=== PATIENT | female | born 1995 | race Caucasian/White ===

== ENCOUNTER 2025-10-03 20:38 | Emergency (ER) | payer OTHER, SELFPAY ==
--- NOTE | ~2025-10-03 | XR_ITS ---
EXAMINATION: XR toe 2nd LT min 2V, XR foot LT 2V DATE: 10/03/2025 21:21 INDICATION: Trauma second toe. TECHNIQUE: 3 views left foot, 3 views of the forefoot and toes. COMPARISON: None. FINDINGS: Dislocation of the proximal interphalangeal joint of second toe is noted. Soft tissue swelling of the second toe is noted. No other fractures or dislocations are seen in the left foot. IMPRESSION: 1. Traumatic dislocation of the proximal interphalangeal joint of the second toe. Reviewed, dictated and finalized at location T. EE MACHINE TECHNICIAN IMPRESSION: 1. Traumatic dislocation of the proximal interphalangeal joint of the second to e.
[2025-10-03 20:40] VITALS: BP 148/90; PULSE 75; RESP 18; TEMP 36.6; O2SAT 100
--- NOTE | 2025-10-03 22:16 | ED.LOWEXIN ---
HPI - Extremity Injury (Lower) General Chief Complaint: Extremity Injury, Lower Stated Complaint: toe injury Time Seen by Provider: 10/03/25 21:48 Source: patient Mode of arrival: ambulatory Limitations: no limitations History of Present Illness HPI Narrative: This is a 30-year-old female with no significant past medical history who presents to the ED for left 2nd toe injury. Patient states that she tripped 5-6 steps injured her left 2nd toe. She has pain to that area and she was able to see the bone prompting her to come to the ED. last tetanus shot was last year. Related Data Allergies Allergy/AdvReac Type Severity Reaction Status Date / Time No Known Allergies Allergy Verified 10/03/25 22:38 Review of Systems Review of Systems: Gen.: Denies fevers or chills Eyes: Denies eye pain or visual change ENT: Denies congestion Respiratory: Denies shortness of breath or cough CV: Denies chest pain or palpitations GI: Denies abdominal pain nausea, emesis or diarrhea denies burning, urgency, frequency or hematuria Musculoskeletal: As per HPI Neuro: Denies numbness, tingling, weakness or focal weakness Skin: Denies rash Except as documented, all other systems reviewed and negative Exam Narrative: APPEARANCE: No acute distress, nontoxic, resting in bed HEENT: Normocephalic, atraumatic, OMM RESPIRATORY: No respiratory distress CARDIOVASCULAR: Appears well perfused ABDOMINAL: Nondistended MUSCULOSKELETAl: Moves all extremities. Deformity to the left 2nd toe with exposed distal surface of the proximal phalanx no active bleeding at this time NEURO: Awake and alert. SKIN:: Warm, dry. No rashes lesions or abrasions PSYCHIATRIC: Normal affect/mood, Course Vital Signs Vital signs: Vital Signs Temperature 97.8 F 10/03/25 20:40 Pulse Rate 75 10/03/25 20:40 Respiratory Rate 18 10/03/25 20:40 Blood Pressure 148/90 H 10/03/25 20:40 Pulse Oximetry 100 10/03/25 20:40 Oxygen Delivery Room Air 10/03/25 20:40 Temperature 97.8 F 10/03/25 20:40 Pulse Rate 74 10/04/25 00:11 Respiratory Rate 16 10/04/25 00:11 Blood Pressure 120/81 10/04/25 00:11 Pulse Oximetry 100 10/04/25 00:11 Oxygen Delivery Room Air 10/03/25 20:40 Procedures Orthopedic Joint Reduction Joint #1: Orthopedic Joint Reduction Date: 10/03/25 Orthopedic Joint Reduction Time: 23:15 Side: left Joint Reduction Location: toe Analgesia: nerve block Pre-Procedure Neuro Vascular Exam: normal Local Anesthesia: lidocaine 2% Amount of anesthesic used (mL): 6 Technique used: direct manipulation Post-reduction neuro exam: intact Post-reduction vascular: intact Post Reduction X-Ray Obtained: No Splint Applied: Yes Patient Tolerated Procedure: well MDM - Extremity Injury (Lower) MDM Narrative Medical decision making narrative: 30-year-old female Presenting for left 2nd toe injury. On initial evaluation patient was in no acute distress afebrile, hemodynamic stable. Differentials include but are not limited to: Fracture, sprain, strain, contusion, dislocation Notable exam findings: Laceration over the dorsum of the left 2nd toe with exposed distal aspect of the proximal phalanx I personally reviewed the patient's images and interpret as follows: X-ray toe: Dislocation at the PIP of the 2nd toe Discussed case with And Regarding the open dislocation, recommended aggressively washing out the joint with saline and reducing and is able and leaving it open from that point did not recommend sutures to repair the laceration. Did recommend starting antibiotics for anti pseudomonal coverage. Joint was reduced, refer to procedure note above. Patient tolerated procedure well. She was milvia taped and placed in a postop shoe. She was given a referral to Dr. Han, orthopedic surgery, for further evaluation and management. She was given a prescription for ciprofloxacin. Patient was agreeable to this plan. Given strict return precautions. Medical Records Attestation: I reviewed the patient's medical records. Imaging Data Radiologist's impression: Impressions Foot X-Ray 10/03/25 21:22 IMPRESSION: 1. Traumatic dislocation of the proximal interphalangeal joint of the second toe. Toe X-Ray 10/03/25 21:22 IMPRESSION: 1. Traumatic dislocation of the proximal interphalangeal joint of the second toe. Discharge Plan Discharge Clinical Impression: Open dislocation of toe joint Qualifiers: Encounter type: initial encounter Qualified Code(s): S93.119A - Dislocation of interphalangeal joint of unspecified toe(s), initial encounter Patient Disposition: Home Condition: Stable Instructions: Antibiotic Form Additional Instructions: You had a dislocated toe they were able to reduce. Because this was an open dislocation, you will be started on antibiotics. You were given a referral to Dr. Han, orthopedic surgery, follow up with his office in the next few days for reevaluation. Take ciprofloxacin as prescribed. Return to the ED for new or worsening symptoms. For pain, discomfort or temperature greater than or equal to 100.8 ?F please alternate the following 2 medications as needed. First medication- acetaminophen/Tylenol- 1000mg every 6-8 hours as needed for above indications. Second medication- ibuprofen/Motrin-600mg every 6-8 hours as needed for above indication. Patient Language: Pakistani Prescriptions: New ciprofloxacin HCl 750 mg tablet 750 mg PO Q12H Qty: 14 0RF Follow-up/Referrals: Martin Han MD [Physician, Orthopedics] UNKNOWN,DOCTOR [Non-Staff]
[2025-10-03] MEDS: CEFEPIME 1 GM in SODIUM CHLORIDE 0.9% IV 50 ML 100 ML IVPB (22:39)
[2025-10-03] MEDS: HYDROcodone/acetaminophen (*CRX) 5-325 MG TABLET 1 TAB PO (23:47)
[2025-10-03 23:56] VITALS: BP 120/81; PULSE 74; RESP 16; O2SAT 100
[2025-10-04 00:11] VITALS: BP 120/81; PULSE 74; RESP 16; O2SAT 100
--- OUTSIDE RECORDS SUMMARY | 2025-10-04 01:56 | XMS_ITS | Encounter Summary ---
Author Organization [facility] Healthcare Address [address] [place] [address] Care Team Providers Care Payroll Human Resources Assistant Name Role Phone Jane Bonilla MD Primary Care Provider [phone] Tirce Mckenzie SECURITY EXPERT Unavailable [phone] Encounter Details Date Type Department Care Team (Latest Contact Info) Description 09/18/2025 Results Follow-Up [facility] Medical Group Obstetrical Gynecology [address] [id number] Dot Majano MD [address] [address] Pap with reflex to High Risk HPV and Genotyping (Cytology Component) Social History Tobacco Use Types Packs/Day Years Used Date Smoking Tobacco: Never Smokeless Tobacco: Never Alcohol Use Standard Drinks/Week Comments No 0 (1 standard drink = 0.6 oz pur e alcohol) Social Connection and Isolation Panel Answer Date Recorded In a typical week, how many times do you talk on the phone with family, friends, or neighbors? More than three times a week 01/14/2025 How often do you get togethe r with friends or relatives? More than three times a week 01/14/2025 Attends Synagogue Services Not on file 01/14 Do you belong to any clubs o r organizations such as spiritism groups, unions, fraternal or athletic groups, or school groups? Patient declined 01/14/2025 How often do you attend meet ings of the clubs or organizations you belong to? Patient declined 01/14/2025 Are you , , di vorced, , never , or living with a partner? Patient declined 01/14/2025 AUDIT-C Answer Date Recorded Q1: How often do you have a drink containing alc ohol? Never 01/14/2025 Average Number of Drinks Not on file Frequency of Binge Drinking Not on file 12/2024 Overall Financial Resource Strain (CARDIA) Answe r Date Recorded How hard is it for you to pa y for the very basics like food, housing, medical care, and heating? Not hard at all 01/14/2025 PHQ-2 Answer Date Recorded PHQ-2 Total Score (If total score is 3 or more points, staff should administer the PHQ-9) 0 09/06/2025 [facility] - Occupational Stress Questionnaire Answer Date Recorded Do you feel stress - tense, restless, nervous, or anxious, or unable to sleep at night because your mind is troubled all the time - these days? Only a little 01/14/2025 Hunger Vital Sign Answer Date Recorded Within the past 12 months, y ou worried that your food would run out before you got the money to buy more. Never true 01/15/20 25 Within the past 12 months, t he food you bought just didn't last and you didn't have money to get more. Never true 01/14/2025 PRAPARE - Transportation Answer Date Re corded In the past 12 months, has l ack of transportation kept you from medical appointments or from getting medications? No 12/2024 In the past 12 months, has l ack of transportation kept you from meetings, work, or from getting things needed for daily living? No 01/14/2025 Inez Depression Scale Answer Date Recorded Inez Depression Scale Total 2 03/13/2025 The thought of harming myself has occurred to me . Never 03/13/2025 Housing Stability Vital Sign Answer Raj e Recorded In the last 12 months, was t here a time when you were not able to pay the mortgage or rent on time? No 01/14/2025 In the past 12 months, how m any times have you moved where you were living? 1 01/14/2025 At any time in the past 12 m [facility], were you homeless or living in a longterm (including now)? No 01/14/2025 Personal Safety Answer Date Recorded Have you ever been in or are you currently in a harmful physical or emotional relationship or is someone making you feel afraid or unsafe? 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
--- OUTSIDE RECORDS SUMMARY | 2025-10-04 01:56 | XMS_ITS | Clinical Summary ---
Author Organization [facility] Physician Of [facility] [address] [place] [phone] Care Team Providers Care [employer] Name Role Phone Jane Bonilla MD Primary Care Provider [phone] Trice Mckenzie PREDATORY ANIMAL EXTERMINATOR Unavailable [phone] Allergies No known active allergies Medications [id number] 25 mg iron-1 mg -400 mg combo pack Take by mouth Active Active Problems Problem Noted Date Diagnosed Date Abdominal pain in , third trimester 12/2024 Supervision of normal first , antepartu m 07/05/2024 Resolved Problems Problem Noted Date Diagnosed Date Resolved Date care following vaginal delivery 01/15/2025 03/13/2025 Overview (01/16/2025): 01/15/25, PPD#1 (JF) S/p forceps assisted vaginal delivery for intolerance EBL 300 cc, Hgb 13.3 A negative, Rubella immune A negative - Rhogam not indicated Vital signs reviewed and normal - MR BP noted x 2 technically meeting criteria for gestational HTN Labs normal, asymptomatic For BP check PP Ambulating, tolerating PO, lochia moderate, pain controlled Straight catheter overnight d/t slow return of feeling after epidural; now voiding spontaneously Labial edema noted - ice packs applied MOF: MOC: for further discussion, NFP VTE ppx: The patient has the following MAJOR risk factors none and the following MINOR risk factors BMI 30-39. Frequent ambulation for VTE prophylaxis. Mood: Stable Dispo: Continue routine care. 01/16/25, PPD#2 (JF) S/p forceps assisted vaginal delivery EBL 300 cc, Hgb 13.3 A negative, Rubella immune Infant A negative - Rhogam not indicated Vital signs reviewed and normal gHTN : Labs normal, asymptomatic, for BP check PP Ambulating, tolerating PO, lochia moderate, pain controlled Labial edema improving MOF: MOC: NFP - reviewed spacing VTE ppx: The patient has the following MAJOR risk factors none and the following MINOR risk factors BMI 30-39. Frequent ambulation for VTE prophylaxis. Mood: Stable Dispo: Desires discharge today. discharge education provided: reviewed s/s of infection, VTE/DVT, bleeding, pre eclampsia and depression/anxiety. Follow up BP check in 3 days and 6 wk RLQ abdominal pain 12/28/2019 4 Other ascites 12/28/2019 09/11/2024 Abnormal pelvic ultrasound 12/28/2019 1 Acute appendicitis with loca lized peritonitis, without perforation or gangrene 12/28/2019 09/11/2024 Dysuria 12/28/2019 09/11/2024 Chest pain 06/06/2014 09/11/2024 Acute appendicitis 4 Encounters Date Type Department Care Team Description 09/18/2025 Results Follow-Up [facility] [address] [place] [phone] Dot Majano MD Pap with reflex to High Risk HPV and Genotyping (Cytology Component) 09/06/2025 12:42 PM CDT - 09/06/2025 11:59 PM CDT Hospital Encounter [facility] [address] [place] [id number] Well woman exam Discharge Disposition: Discharge to home or self care 09/06/2025 10:30 AM CDT Office Visit [facility] [address] [place] [address] [place] [phone] Dot Majano MD Well woman exam (Primary Dx) from Last 3 Months Immunizations Immunization Administration Dates Next Due Influenza, Quadrivalent, Spl it, Preservative Free, Intramuscular 12/28/2019 Influenza, Trivalent, IM (V) 08/15/2015 Tdap 11/09/2024 Surgical History Surgery Date Site/Laterality Comments WISDOM TOOTH EXTRACTION [place] Teeth Extraction TONSILLECTOMY Tonsillectomy APPENDECTOMY Family History Medical History Relation Name Comments Diabetes Maternal Grandmother Diabete s mellitus; Heart disease Maternal Grandmother Depression Paternal Grandfather Heart attack Paternal Grandfather Myocard ial infarction; Cause of : Myocardial infarction Breast cancer Neg Hx Colon cancer Neg Hx Ovarian cancer Neg Hx Uterine cancer Neg Hx Relation Name Status Comments Father Alive Maternal Grandmother Mother Alive Paternal Grandfather Social History Tobacco Use Types Packs/Day Years Used Date Smoking Tobacco: Never Smokeless Tobacco: Never Tobacco Cessation:Counseling Given: Not Answered Alcohol Use Standard Drinks/Week Comments No 0 [...] than three times a week 01/14/2025 Attends Confucianism Services Not on file 01/14 Do you belong to any clubs o r organizations such as hoahaoism groups, unions, fraternal or athletic groups, or [...] Average Number of Drinks Not on file 025 Frequency of Binge Drinking Not on file [...] staff should administer the PHQ-9) 0 09/06/2025 [facility] [place] [facility] [employer] [facility] - Occupational Stress Questionnaire Answer Date Recorded [...] things needed for daily living? No 01/14/2025 [place] Depression Scale Answer Date Recorded [place] Depression Scale Total 2 03/13/2025 The thought [...] any time in the past 12 m [facility], were you homeless or living in a [facility] (including now)? No 01/14/2025 Personal Safety Answer Date Recorded Have you ever been in or are you currently in a harmful physical or emotional relationship or is someone making you feel afraid or unsafe? Denies 01/14/2025 Comments No Sex and Gender Information Value Date Recorded Sex Assigned at Not on file Legal Sex Female 3:51 AM [employer] Gender Identity Female 01/25/2025 4:38 PM CDT Sexual Orientation Straight 01/25/2025 4: 38 PM CDT Obstetrics History Para Term AB IAB SAB Ectopic Multiple Livin g Live Births 1 1 1 0 1 1 Date Outcome GA Total Labor Labor/2nd/3rd Weight Sex Type Anes PTL Elizabeth A1 A5 Name Clin 2024 Term 38w 3d 2h 50m 1h 30m/1h 12m/0h 08m 3.39 kg (7 lb 7.6 oz) F Vagina l Epidur al Livin g 8 9 Dorot hy L Leia earl, Dot Gamino MD Complications:None Delivery Location:[facility] Main C ampus ([facility]) Comments Last Filed Vital Signs Vital Sign Reading Time Taken Comments Blood Pressure 100/60 09/06/2025 10:41 AM CDT Pulse 65 09/06/2025 10:41 AM CDT Temperature 36.7 C (98 F) 01/16/2025 5:35 AM [employer]ER Respiratory Rate 18 01/16/2025 5:35 AM [employer]OO[employer] B[employer]ER Oxygen Saturation 98% 01/15/2025 9:44 PM [employer]ER Inhaled Oxygen Concentration - - Weight 93 kg (205 lb) 09/06/2025 10:41 AM CDT Height 170.2 cm (5' 7) 09/06/2025 10:41 AM CDT Body Mass Index 32.11 09/06/2025 10:41 AM CDT Plan of Treatment Health Maintenance Due Date Last Done Comments Varicella Vaccines (1 of 2 - 13+ 2-dose series) 2010 Hepatitis B Screening 2015 Influenza Vaccine (#1) 2025 0, 08/15/2015, 08/09/2014 Cervical Cancer Screening 09/06/2026 09/06/2025 Depression Screening 09/06/2026 09/06/2025, 03/13/2025 Regular Well Visit/Exam 18-64 09/06/2026 09/06/2025 DTaP/Tdap/Td Vaccine (3 - Td or Tdap) 11/09/2034 11/09/2024, 11/26/2009 HPV Vaccines Completed 06/30/2011, 06/23/2010, 11/26/2009 Hepatitis C Screening Completed 08/09/2024 Pneumococcal vaccine <65 Aged Out No longer eligible based on patient's age to complete this topic Procedures Procedure Name Priority Date/Time Associated Diagnosis Comments PAP WITH REFLEX TO HIGH RISK HPV Routine 09/06/2025 11:02 AM CDT Well woman exam THINPREP PROCESSING (MOLECULAR COMPONENT) Routine 09/06/2025 11:02 AM CDT Well woman exam HEPATITIS C ANTIBODY Routine 08/09/2024 2:08 PM CDT Encounter for supervision of normal first in first trimester from Last 3 Months or Most Recently Relevant to Health Maintenance Results * ThinPrep processing (Molecular component) (09/06/2025 11:02 AM CDT) ThinPrep processing (Molecular component) Specimen received for processing. [facility] Comment:Testing performed by : [facility], [address] [place]., [address] Endocervical 09/06/2025 11:0 2 AM CDT 09/06/2025 7:30 PM CDT Dot Majano MD LAB BODY FLUIDS AND STOOL S ORDERABLES Final Result [facility] [address] [facility] Department [place] [address] [facility] * Pap with reflex to High Risk HPV and Genotyping (Cytology Component) (09/06/2025 11:02 AM CDT) Thin prep (Pap test) 09/06/2025 11:02 AM CDT 09/12/2025 11:17 AM CDT Narrative [facility]OLOG[facility] - 09/14/2025 2:58 PM CDT EPIC results best viewed via link to PDF [facility] [place] [address] Note to Patients: This report may contain a detailed description of human tissue sent by a health care provider to the laboratory for pathologic evaluation. The content of this report is essential for diagnosis and may provide important critical findings. This information may be unfamiliar to patients to review without a medical professional present. It is advised that the patient review this report in the presence of a health care provider who can answer questions and explain the details. CYTOPATHOLOGY REPORT FINAL Patient Name: RAND MOSER Gender: F : 1995 (Age: 30) Address: [address] [place] [address] Hospital #: [id number] Service: DEFAULT Location: Patient Type: [facility] SPECIMEN Taken: 09/06/2025 Received: 09/12/2025 Accessioned: 09/12/2025 Reported: 09/14/2025 Physician(s): Dot Majano M.D. FINAL INTERPRETATION SOURCE OF SPECIMEN Liquid based Thin Prep pap with Reflex HPV: STATEMENT OF ADEQUACY - Satisfactory for evaluation - Endocervical cells/transformation zone sample present GENERAL CATEGORIZATION: - Negative for squamous intraepithelial lesion or malignancy ml/09/14/2025 14:58 Sheila Marroquin MS, CT (ASCP) Report Electronically Reviewed and Signed Out By Sheila Marroquin MS, CT (ASCP) 09/14/2025 14:58:51 Cervicovaginal Cytology (Pap Test) Disclaimer: The Pap test is a screening test used to detect cervical cancer and its precursors; it is not a diagnostic procedure. False negative and false positive results do occur. Pap test results should be interpreted in the context of pertinent clinical information and biopsy results as indicated. [facility] Clinical Laboratory Improvement Amendments (CLIA) mandate that cytologic and histologic results be correlated for laboratory quality auditor & improvement standards. FOR ALL HIGH-GRADE CASES we request submission of follow-up histological material and/or reports that have not been previously provided so that we may fulfill said required standards. Gross Description A. Liquid based Thin Prep pap with Reflex HPV: Cervical/vaginal - Screening ThinPrep Clinical Diagnosis and History Last Menstrual Period: 08/01/25 The patient is a 30 year old female with screening. Report Images and scanned documents, if included only viewable in PDF version The performance characteristics of some immunohistochemical stains, in-situ hybridization and fluorescence in-situ hybridization tests and immunophenotyping by flow cytometry cited in this report (if any) were determined by the Surgical Pathology Department at [facility] as part of an ongoing quality assurance technician program and in compliance with federally mandated regulations drawn from the Clinical Laboratory Improvement Act of 1988 (CLIA '88). Some of these tests rely on the use of analyte specific reagents and are subject to specific labeling requirements by the US Food and Drug Administration. Such diagnostic tests may only be performed in a facility that is certified by the Department of Health and Human Services as a high complexity laboratory under CLIA '88. The FDA has determined that such clearance or approval is not necessary. This test is used for clinical purposes. It should not be regarded as investigational or for research. Nevertheless, federal rules concerning the medical use of analyte specific reagents require that the following disclaimer be attached to the report: This test was developed and its performance characteristics determined by the Surgical Pathology Department of [facility]. It has not been cleared or approved by the U. S. Food and Drug Administration. Dot Majano MD LAB CYTOLOGY ORDERABLES F inal Result PATHOLOGY [facility] * Hepatitis C antibody Blood (08/09/2024 2:08 PM CDT) Hep C Ab Nonreactive Nonreactive Comment: Antibodies to HCV not detected. Does NOT exclude the possibility of recent exposure to HCV. Current interpretive data was last revised on 22 Interpretive Data Nonreactive: Antibodies to HCV not detected. Does NOT exclude the possibility of recent exposure to HCV. Equivocal: Equivocal for HCV antibodies. Supplemental molecular testing will be automatically performed to determine infection status in accordance with current CDC screening recommendations. Reactive: Positive for HCV antibodies. This may represent current or past HCV infection. Supplemental molecular testing will be automatically performed to determine current infection status in accordance with current CDC screening recommendations. Interpretive data was last revised on 2020. Blood 08/09/2024 2:08 PM CDT 08/09/2024 6:56 PM CDT Kushal Leblanc MD LAB MICROBIOLOGY - GENERAL ORDERABLES Final Result [facility] [address] Department [place] [address] from Last 3 Months or Most Recently Relevant to Health Maintenance Insurance [employer] Address: [address] [place] [address] [employer] Address: [facility] [id number] [place] [address] [facility] [employer] [facility] [employer] Advance Directives For more information, please contact: [phone] * Full Code (Latest Code Status on File) Date Activated Date Inactivated Comments 01/14/2025 3:03 PM 01/16/2025 4:09 PM * Full Code Date Activated Date Inactivated Comments 01/14/2025 1:52 AM 01/14/2025 3:03 PM Full CPR in ca se of cardiopulmonary arrest * Full Code Date Activated Date Inactivated Comments 12/27/2019 5:43 PM 12/28/2019 11:38 PM Care Teams So[employer]inen Distributor Relationship Specialty Start Date End Date Jane Bonilla MD [address] [place] [address] PCP - General 12/31/19 [place] [address] [address] 12/31/19
== END 2025-10-04 00:16 | disposition home or self-care (01) ==
PROVIDERS: Emergency Provider Student in an Organized Health Care Education/Training Program
DX: S93.115A Dislocation of interphalangeal joint of left lesser toe(s), initial encounter (principal); W18.40XA Slipping, tripping and stumbling without falling, unspecified, initial encounter
CPT/HCPCS: 28635; 73620; 73660; 96365; 99285; A9270; J0692